=== PATIENT | female | born 1950 | race Caucasian/White ===

== ENCOUNTER 2023-12-06 11:03 | Emergency (ER) | payer MEDICARE, OTHER, SELFPAY ==
[2023-12-06] VITALS (9 sets, daily range): BP systolic 142–162; BP diastolic 65–80; BMI 26.6
--- NOTE | 2023-12-06 11:36 | EDRN ---
labs drawn and sent, IV placement unsuccessful, pt notified, provider notified, VS WNL, no s/s of distress
[2023-12-06 11:47] LABS: % Basophils 0.4 % (0-2); % Eosinophils 0.5 % (0-6); % Immature Granulocytes 0.2 % (0-0.5); % Monocytes 8.6 % (1.7-9.3); % Neutrophils 82.3 % (42.2-75.2); Absolute Lymphocytes 0.7 10^3/uL (1.2-3.4); Absolute Monocytes 0.7 10^3/uL (0.1-0.6); Absolute Neutrophils 6.9 10^3/uL (1.4-6.5); Hematocrit 42.2 % (37.0-47.0); Hemoglobin 14.9 g/dL (12.0-16.0); Mean Corp Hgb Conc. 35.3 g/dL (33.0-37.0); Mean Corpuscular Hgb 33.1 pg (27.0-31.0); Mean Corpuscular Volume 93.8 fL (81.0-99.0); Nucleated Red Blood Cells % 0 %; Platelet Count 188 10^3/uL (130-400); Red Cell Dist. Width 13.8 % (11.5-14.5); White Blood Cell Count 8.4 10^3/uL (4.8-10.8)
[2023-12-06 12:00] LABS: APTT 34.4 Sec (23.4-35.0); INR 1.07; PT 13.8 Sec (11.4-14.6)
[2023-12-06 12:03] LABS: Blood Urea Nitrogen 12 mg/dl (7-17); Calcium 10.1 mg/dl (8.4-10.2); Carbon Dioxide 21 mmol/L (22-30); Chloride 98 mmol/L (98-107); Estimated Creatinine Clearance 53 ml/min; Glucose 107 mg/dl (70-99); Sodium 137 mmol/L (135-145); eGFR > 60.00
--- NOTE | 2023-12-06 12:04 | EDRN ---
the pt pressed the call perez and this RN entered the pts room, the pt stated that she needed to use the bathroom, this RN unhooked the pt from the BP cuff and the Sp02 monitor, the pt was able to ambulate to the bathroom and back to the stretcher
with no issues, will continue to monitor the pt closely
[2023-12-06] MEDS: NSS 1000 IV (12:20)
--- NOTE | 2023-12-06 12:20 | EDRN ---
LAC #[id number] PIV was successfully placed, labs drawn and sent
--- NOTE | 2023-12-06 12:25 | ED.GENMED ---
History of Present Illness
General
Chief Complaint: Abdominal Pain
Source: patient
Exam Limitations: none
Time Seen by Provider: 12/06/23 11:19
Nursing documentation reviewed up to this point in time: agreed with
History of Present Illness
History of Present Illness:
pt is a 73 y/o F with h/o diverticulosis
here with lower abd pain since yesterday, crampy inermittent and she has had 4 episodes of small amount of bright red blood in the toilet after having crapming
she is not actually having diarrhea
no stool with it
no clots
no rectal pain
no known hemorrhoids
says she was due for colonoscopy last barb but skipped it
has had polyps in in the past
no vomiting blood, fever, syncope, blood thinners
Past History
Past History
ED Past Medical History: HTN and Hypercholesterolemia
ED Past Surgical History: None
Social History
Tobacco: Smoker
Alcohol: Occasional
Personal:
Living: with family
Employment: Employed
Review of Systems
Review of Systems
Allergies reviewed?: Yes
All Other Systems: Not applicable
Phy Exam
Physical Exam
Physical Exam:
GENERAL: Alert , in no apparent distress
EYE: pupils equal and reactive
NECK: Supple
ENT: o/p clr, mmm.
CARDIAC: Regular rate and rhythm .
LUNGS: Clear breath sounds bilaterally, no acute respiratory distress, no wheezes/rales/rhonchi
ABDOMEN: Soft, without focal tenderness, no r/g, no cvat, normal bowel sounds
Small external nonbleeding nonthrombosed hemorrhoid, the rectum vault has just a trace amount of pink, it is testing heme positive
NEUROLOGICAL: Alert and oriented, no focal neuro deficits
SKIN: Warm and dry, skin intact.
MUSCULOSKELETAL: No edema, well perfused. neg maged's sign
PSYCH: Normal and appropriate interaction.
Course
Orders/Labs/Results
Orders:
Orders
12/06/23 11:25
IV Insert/Care/Rem.- Treatment PRN
12/06/23 11:35
Basic Metabolic Panel Urgent
Complete Blood Count/With Diff Urgent
PTT Urgent
Prothrombin Time Urgent
12/06/23 12:16
Lactic Acid Urgent
Potassium Urgent
12/06/23 12:20
0.9% Sodium Chloride 1000 ml [Nss] 1,000 ml IV BOLUS
12/06/23 12:49
CT Abd/Pel (IV only)-DH only Urgent
Comment:
Reason For Exam: lower abd pain, cramping, BRBPR
12/06/23 12:50
Diphenhydramine [Benadryl] 50 mg IV NOW STA
Hydrocortisone Sod Succinate [Solu-Cortef] 200 mg IV NOW STA
Abnormal Lab Results
12/06/23
11:35
MCH 33.1 H pg
(27.0-31.0)
Absolute Neuts (auto) 6.9 H 10^3/uL
(1.4-6.5)
Absolute Lymphs (auto) 0.7 L 10^3/uL
(1.2-3.4)
Absolute Monos (auto) 0.7 H 10^3/uL
(0.1-0.6)
Neutrophils % 82.3 H %
(42.2-75.2)
Lymphocytes % 8.0 L %
(20.5-51.1)
Carbon Dioxide 21 L mmol/L
(22-30)
Glucose 107 H mg/dl
(70-99)
12/06/23 11:35
12/06/23 12:16
Vital Signs
Initial and Last Documented VS:
Initial Vital Signs
Temp Pulse Resp BP Pulse Ox
99.1 F 80 18 155/77 97
12/06/23 11:04 12/06/23 11:04 12/06/23 11:04 12/06/23 11:04 12/06/23 11:04
Last Documented Vital Signs
Temp Pulse Resp BP Pulse Ox
99.1 F 74 16 142/80 99
12/06/23 11:04 12/06/23 16:00 12/06/23 13:59 12/06/23 16:00 12/06/23 16:00
MDM/Problems Addressed
Differential Diagnosis Includes:
Diverticulitis, hemorrhoidal bleeding, colitis
MDM/Problems Addressed:
73-year-old female not anticoagulated with bright red blood per rectum x 4 small episodes with crampy abdominal pain preceding it since last night. She has not had continued severe lower abdominal pain but has mild discomfort. She has a history of
diverticulosis. Patient has not had a colonoscopy recently and was due last year
Previously on colonoscopy she has had polyps and diverticulosis. Patient has not had any fevers or chills. She on exam has no significant tenderness but minimal lower abdominal discomfort on exam as well as a trace amount of blood in her vault.
There is a hemorrhoid there externally that is not bleeding. Her labs are reassuring with a her labs are reassuring with a normal hemoglobin of 14, BUN of 12, lactate of 1.[address] scan shows no obvious findings of diverticulitis or colitis. I spoke with the on-call GI doctor Dr. Montejo regarding this patient to try to expedite a follow-up appointment for colonoscopy. I feel like she stabilized to go home. Patient
is very motivated to be discharged. Will try Metamucil and suppositories for presumed hemorrhoidal bleeding and have her follow-up with GI
*Critical Care Note
Total Time (30-74mins, 75-104mins- exclusive of procedures): Not Applicable
ED Attending Note
-
Portions of this chart may have been created with voice recognition software.� Occasional wrong word or��sound alike� substitutions may have occurred due to the inherent limitations of voice recognition software.
Discharge Plan
Departure
Patient Disposition: Home (Routine Discharge)
Date of Disposition: 12/06/23
Time of Disposition: 15:33
Patient with high blood pressure during this ER visit?: Yes
Condition: Fair
Covid-19: Not Applicable
Discharge Problem:
Rectal bleed, Colitis
Instructions: Clear Liquid Diet, Colitis (DC)
Prescriptions:
No Action
pravastatin [Pravachol] 40 MG tablet
60 mg PO DAILY
aspirin [Aspir-Low] 81 MG tablet,delayed release (DR/EC)
81 mg PO DAILY
doxazosin 2 MG tablet
2 mg PO DAILY
cholecalciferol (vitamin D3) [Vitamin D3] 400 UNITS tablet
400 units PO DAILY
ezetimibe 10 MG tablet
10 mg PO QPM
spironolactone 25 mg Tablet
12.5 mg PO DAILY Qty: 30 0RF
Referrals:
UNKNOWN - PT DOES,NOT KNOW [Family Provider] -
Activity Restrictions/Additional Instructions:
The GI doctors want you to try clear liquid diet for the next 24 hours, use Metamucil once a day which helps bulk the stool. You can also try using a suppository Preparation H in your rectum in case you have hemorrhoidal bleeding. For now she
wants to hold off on the antibiotics. Since you do not have diarrhea this is probably a upton choice but if you start to develop diarrhea she told me to tell you to call Dr. Tony's office and they can call you in an antibiotic. Just tell them
you are in the emergency department. One of the GI team front desk coordinator staff was notified that you are here and that you need a follow-up appointment. Please watch for worsening episodes like increase in episodes of rectal bleeding, more volume,
clots, abdominal pain that is worsening, fever or chills. If you develop any of these you could always return to the emergency department.
Interventions
Interventions:
*Risk Screen - Suicide Last Done: 12/06/23 11:29
*General Assessment Last Done: 12/06/23 11:29
*Neglect/Abuse Screening Last Done: 12/06/23 11:29
ED- Fall Risk Assessment Last Done: 12/06/23 11:29
*ED COVID-19 Vaccine History Last Done: 12/06/23 11:29
*Nursing Disposition Last Done: 12/06/23 16:00
VQ-Ocddef-Rhflbhnxtz Assessment Last Done: 12/06/23 11:29
Discharge Date and Time
Discharge Date/Time: 12/06/23 16:00
Print Language: ARMENIAN
[2023-12-06 12:34] LABS: Potassium 3.8 mmol/L (3.5-5.1)
[2023-12-06 12:37] LABS: Lactic Acid 1.6 mmol/L (0.7-2.0)
[2023-12-06] MEDS: BENADRYL 50 MG IV (12:57)
[2023-12-06] MEDS: SOLU-CORTEF 200 MG IV (12:59)
--- NOTE | 2023-12-06 13:59 | EDRN ---
the pt is resting in stretcher in the lowest position, side rails up x2, call perez within reach, HOB elevated, VS WNL, awaiting for CT scan, will continue to monitor the pt closely
== END 2023-12-06 16:00 | disposition home or self-care (01) ==
LOC: EMR 11:03
PROVIDERS: Physician Assistant; EMERGENCY PHYSICIAN Emergency Medicine
DX: K52.9 Noninfective gastroenteritis and colitis, unspecified (principal); K62.5 Hemorrhage of anus and rectum; I10 Essential (primary) hypertension; F17.200 Nicotine dependence, unspecified, uncomplicated
CPT/HCPCS: 99285; 96374; 96375; 96361; 74177; 80048; 83605; 84132; 85025; 85610; 85730; Q9967

== ENCOUNTER → 2023-12-22 06:24 | Day surgery (SDC) | payer MEDICARE, OTHER, SELFPAY | LOC: GI 06:24 | PROVIDERS: ATTENDING PHYSICIAN Internal Medicine Gastroenterology; FAMILY PHYSICIAN Nurse Practitioner Family | DX: Z12.11 Encounter for screening for malignant neoplasm of colon (principal); K62.89 Other specified diseases of anus and rectum; K57.30 Diverticulosis of large intestine without perforation or abscess without bleeding; D12.0 Benign neoplasm of cecum; K63.5 Polyp of colon; Z86.010 Personal history of colon polyps | CPT/HCPCS: 45385; 45381; 45380; 88305 ==